=== PATIENT | male | born 1955 | race Caucasian/White ===

== ENCOUNTER 2022-09-02 06:47 | Day surgery (SDC) | payer MEDICAID, SELFPAY ==
--- NOTE | 2022-09-02 06:35 | ANES.PREOP_ITS ---
General Info Date of Service Date Performed: 09/02/22 Height: 5 ft 6 in Weight: 83.915 kg Body Mass Index (BMI): 29.8 Surgical Procedure: Operation Date: 09/02/22 08:40 Proposed Procedure Side Surgeon p Cataract Extraction with IOL Implant Right Sukhjinder Obrien MD Meds Allergies and Home Medications Allergies Allergy/AdvReac Type Severity Reaction Status Date / Time Sulfa (Sulfonamide Allergy Unknown Unknown Unverified 09/02/22 07:29 Antibiotics) Home Medication Medication Instructions Recorded albuterol sulfate 90 mcg/actuation 2 puff inhalation Q4H 08/29/22 aerosol inhaler amlodipine 5 mg tablet 5 mg PO DAILY 08/29/22 aspirin 81 mg capsule,delayed 81 mg PO DAILY 08/29/22 release atorvastatin 10 mg tablet 10 mg PO DAILY 08/29/22 budesonide-formoterol HFA 160 1 puff inhalation BID 08/29/22 mcg-4.5 mcg/actuation aerosol inhaler (Symbicort) cyanocobalamin (vitamin B-12) 1,000 mcg PO DAILY 08/29/22 1,000 mcg tablet folic acid 1 mg tablet 1 mg PO DAILY 08/29/22 hydrocortisone 1 % topical cream 1 applic topical BID 08/29/22 metoprolol succinate 25 mg 25 mg PO DAILY 08/29/22 tablet,extended release 24 hr multivitamin with minerals 1 tab PO DIRECTED 08/29/22 thiamine HCl (vitamin B1) 100 mg 100 mg PO DAILY 08/29/22 tablet Current Visit Medications: Current Medications Generic Name Dose Route Start Last Admin Trade Name Freq PRN Reason Stop Dose Admin Acetaminophen 1,000 mg 09/02/22 06:00 Acetaminophen 500 Mg Tab PO Q4H PRN PRN Miscellaneous Medication 0 ml 09/02/22 06:00 Tropicam./Phenyleph. (1/2.5%) 5 Ml Btl OD DIRECTED [facility] Miscellaneous Medication 0 ml 09/02/22 06:00 Prednisolone 1%, Moxifloxacin 0.5%, Nepafenac 0.1% 5ml Btl OD DIRECTED [facility] Tetracaine HCl 0 ml 09/02/22 06:00 Tetracaine 0.5% 4 Ml Btl OD DIRECTED [facility] PFSH Active Problems Active Problems: Problem Status Onset Code Cortical cataract of right eye H26.9 Nuclear sclerotic cataract of right eye H25.11 Medical History Medical History Acute non-ST elevation myocardial infarction (NSTEMI) 01/2021-F/U with PCP Alcohol dependence Anemia ASCVD (arteriosclerotic cardiovascular disease) Cellulitis of right leg COPD (chronic obstructive pulmonary disease) Edema of lower extremity HLD (hyperlipidemia) Hypertensive disorder Nicotine dependence Overweight PAD (peripheral artery disease) Steatosis of liver Surgical History Surgical History (Updated 09/02/22 @ 07:26 by Vivian Reyna) History of ankle surgery History of hernia repair Hx of cardiac catheterization 1 stent Tobacco Smoking/Tobacco Use Status: Current every day Tobacco Type: cigarettes Alcohol Alcohol Intake: current Alcohol intake frequency: 3 or more drinks per day Alcohol type: beer Substance Use Substance use: Never Substance use type: does not use Details: 6 pack a day Vital Signs and Lab Results Lab Results Blood Type / Crossmatch: No Data to Display Complete Blood Count: No Data to Display Complete Metabolic Panel: No Data to Display Liver Function Panel: No Data to Display Coagulation Panel: No Data to Display Cardiac Panel: No Data to Display Arterial Blood Gas: No Data to Display Venous Blood Gas: No Data to Display Pancreas Panel: No Data to Display Thyroid Panel: No Data to Display Infectious Disease: No Data to Display Blood Cultures: No Data to Display Toxicology Panel: No Data to Display Anesthesia Assessment and Plan Anesthesia History Personal History: No History of Anesthesia Complications Family History: No Family History of Anesthesia Complications Exercise Tolerance Exercise Tolerance: Metabolic Equivalents>4 Pertinent Negatives Pertinent Negatives: No Symptoms of GERD Cardiac & Pulmonary Exam Cardiac Exam: Normal S1/S2 Heart Sounds Pulmonary Exam: Wheezing Present and Active Cough or Cold (States is his smokers cough) Cardiac and Pulmonary Comment:: Abdominal distension, denies liver issues or ascites. Patient is concerned about lying flat. Implantable Cardiac Device Does patient have a Pacemaker or an ICD?: No Airway Exam Known Difficult Airway: No Mallampati Class: 2 Mouth Opening: Normal (> 3cm) Thyromental Distance: Greater than 3 cm Neck Range of Motion: Full ROM Neck Circumference: Normal Teeth Condition: Edentulous ASA Classification ASA Score: ASA 3 Emergency Case?: No NPO Status NPO Status: NPO Clears >2 hours, Solids >8 hours Anesthesia Plan Resuscitation Status: Full Code Anesthesia Technique: MAC Anesthesia Airway Planned: Natural Airway Monitors Used: Standard Monitors
[2022-09-02 07:34] VITALS: BP 137/65; PULSE 97; RESP 18; TEMP 37.1; O2SAT 95
[2022-09-02] MEDS: Tropicam./Phenyleph. (1/2.5%) 5 ML BTL OD ×3 (07:34→07:47)
[2022-09-02 08:17] VITALS: BMI 29.8
[2022-09-02] MEDS: Tetracaine 0.5% 4 ML BTL OD (08:33)
[2022-09-02] MEDS: Balanced Salt Soln.-PLUS 500 ML BAG (08:33)
[2022-09-02] MEDS: Duovisc Viscoelastic System EACH 1 EACH (08:34)
[2022-09-02] MEDS: Lidocaine 1% Pres-Free 5 ML VIAL (08:35)
[2022-09-02] MEDS: Lidocaine 2% Jelly 6 ML SYR (08:35)
[2022-09-02] MEDS: Povidone-Iodine Ophth 30 ML BTL (08:37)
--- NOTE | 2022-09-02 08:43 | W.PM.DSUDISC ---
Date of service: 09/02/22 Time of Service: 08:43 Discharge Plan Disposition Patient Disposition: Home Discharge Details Attending Provider: Sukhjinder Obrien Primary Care Provider: KATRINA RAMIREZ Home Meds and New Rx's Prescriptions: No Action atorvastatin 10 mg Tablet 10 mg PO DAILY cyanocobalamin (vitamin B-12) 1,000 mcg Tablet 1,000 mcg PO DAILY thiamine HCl (vitamin B1) 100 mg Tablet 100 mg PO DAILY amlodipine 5 mg Tablet 5 mg PO DAILY aspirin 81 mg Capsule,Delayed Release(Dr/Ec) 81 mg PO DAILY hydrocortisone 1 % Cream 1 applic topical BID folic acid 1 mg Tablet 1 mg PO DAILY metoprolol succinate 25 mg Tablet Extended Release 24 Hr 25 mg PO DAILY multivitamin with minerals Tablet 1 tab PO DIRECTED albuterol sulfate 90 mcg/actuation Hfa Aerosol Inhaler 2 puff INHALATION Q4H budesonide-formoterol [Symbicort] 160-4.5 mcg/actuation Hfa Aerosol Inhaler 1 puff INHALATION BID Discharge Instructions Stand Alone Forms: Post-op Topical Cataract, Julian Krause ([facility]U) Discharge Orders Discharge Orders: Discharge Order (Routine); Ordered 09/02/22 Ordered By: Sukhjinder Obrien DS: Diagnosis Discharge Diagnosis (1) Nuclear sclerotic cataract of right eye: Status: Resolved (2) Cortical cataract of right eye: Status: Resolved
--- NOTE | 2022-09-02 08:44 | ROE_ITS ---
Date of service: 09/02/22 Time of Service: 08:44 Operative Note Operative Note DATE OF PROCEDURE: 09/02/22 PRE-OP DIAGNOSIS: Nuclear/cortical cataract, right eye POST-OP DIAGNOSIS: same PROCEDURE: Cataract extraction using phacoemulsification with intraocular lens implant, right eye SURGEON: Sukhjinder Obrien ANESTHESIA TYPE: Local By Surgeon and MAC Refer to Anesthesia Record ESTIMATED BLOOD LOSS: 0 PATHOLOGY: none sent COMPLICATIONS: None Patient was transported to: same day Patient's condition: stable Implants: Jake & Jake Tecnis Eyhance [id number] Indications: Progressive visual loss due to cataract, right eye Procedure Description: CATARACT SURGERY OPERATIVE REPORT PREOPERATIVE DIAGNOSIS: 1. Nuclear/cortical cataract, right eye POSTOPERATIVE DIAGNOSIS: Same OPERATION: 1. Cataract extraction using phacoemulsification with posterior chamber intraocular lens implant, right eye. IOL: IOL Speech Therapy Assistant/Model: Jake & Jake Tecnis Eyhance DIB00 IOL Power: + 23.5 diopters IOL Serial Number: [id number] Optic Diameter: 6.0mm Haptic/Overall Diameter: 13.0mm PHACO INFO: Jian EventSneakerurion Vision System with OZil and Active Fluidics Cumulative Dispersed Energy (CDE): 9.26 seconds SURGEON: Sukhjinder Obrien MD, SHAUN ANESTHESIA: Monitored Anesthesia Care (MAC), with local sub-tenon's anesthetic infiltration COMPLICATIONS: None SPECIMENS: None INDICATIONS FOR PROCEDURE: The patient is a 66-year-old male with history of diminished visual acuity in his right eye secondary to the development of nuclear/cortical cataract. He is significantly symptomatic that he desires cataract surgery and attempt to improve and maximize his vision. The option of cataract surgery was offered to the patient and he wished to proceed. PROCEDURE: The correct surgical eye was identified and marked as the right eye and the pupil was dilated in the preoperative area using mydriatics and cycloplegics. The dilated pupil size was 7.0 mm. The patient elected to proceed without oral sedation. The patient was brought to the operating room where cardiopulmonary monitoring was instituted and surgical time-out was performed, confirming the correct operative eye and IOL power. Topical anesthesia was administered and ophthalmic povidone-iodine 5% was instilled into the conjunctival fornices. Lidocaine gel was applied to the cornea and the fide-ocular area was prepped with Betadine 10% solution and draped in the usual sterile fashion for intraocular surgery, including an aperture drape. A Tegaderm transparent film dressing was cut in half and used to cover the lashes and lid margins. Care was taken to sequester the lashes and lid margins under the Tegaderm dressing. A lid speculum was placed between the lids of the operative eye and the Jian LuxOR Revalia operating microscope was maneuvered into position. Diego scissors were then used to make a conjunctival buttonhole approximately 6mm posterior to the limbus in the inferonasal quadrant. Blunt dissection was carried out to expose bare sclera, and a blunt-tipped sub-tenon?s anesthesia cannula was introduced and passed posteriorly along the globe where non- preserved plain lidocaine was injected into posterior sub-Tenon?s space. A sideport knife was used to make a paracentesis port inferotemporally. Intraocular phenylephrine/lidocaine was injected into the anterior chamber. The anterior chamber was filled with viscoelastic. A keratome knife was used to construct a 2-plane near-clear corneal tunnel extending 2.0mm into clear cornea superiortemporally. A flap was raised on the anterior capsule and capsulorhexis forceps were used to complete a continuous curvilinear capsulorhexis of 5.0 mm. Balanced salt solution was then used to perform cortical cleaving hydrodissection and nuclear hydrodelineation until the lens could be freely rotated within the capsular bag. The lens nucleus was then disassembled and removed within the capsular bag and iris plane using phacoemulsification. Residual cortical material was removed using the I/A handpiece. The posterior capsule was carefully polished to remove as much residual lens epithelial cells as safely possible. The capsular bag was then inflated and the anterior chamber deepened with viscoelastic. The lens implant described above was inserted into the capsular bag using the Jake [employer] David Simplicity pre-loaded injector. A Kuglen hook was used to dial the IOL into position. Residual viscoelastic was then removed first from posterior to the IOL, then from the anterior chamber using the I/A handpiece. The lens implant was noted to center nicely within the capsular bag. The incisions were stromally hydrated, and the anterior chamber was reformed using BSS. Then 0.5cc of moxifloxacin 1.0mg/ml were injected into the capsular bag and anterior chamber. The incis ions were checked with a Weck spear and found to be secure. Several drops of ophthalmic povidone-iodine 5% were then applied to the eye followed by two drops of Imprimis combination prednisolone/moxifloxacin/nepafenac solution. The drapes were removed and a clear plastic protective eye shield was placed over the eye. The patient was then returned to Same Day Surgery in stable condition.
[2022-09-02 08:46] VITALS: BP 142/71; PULSE 94; RESP 20; TEMP 37.2; O2SAT 96
--- NOTE | 2022-09-02 09:05 | W.ANESPOSTOP ---
Postoperative Evaluation Date, Time and Location Date Performed: 09/02/22 Time Performed: 08:48 Patient Location: Day Surgery Unit Vital Signs Most Recent Imported Vital Signs: Most Recent Vital Signs Temp Pulse Resp BP Pulse Ox 37.2 C 94 H 20 142/71 H 96 09/02/22 08:46 09/02/22 08:46 09/02/22 08:46 09/02/22 08:46 09/02/22 08:46 Pain Score Most Recent Pain Score: Most Recent Pain Score Pain Level 0 09/02/22 08:46 Assessment Mental Status: Awake (Alert & Oriented to Patient Baseline) Airway and Respiratory Function: Patent airway with normal (patient baseline) respiratory exam Cardiovascular Function: Hemodynamically Stable Hydration Status: Adequately Hydrated Nausea & Vomiting: No Nausea or Vomiting Pain: Pt. Denies Any Pain Peripheral Nerve Block: Other (Local by Dr. Obiren)
== END 2022-09-02 09:10 | disposition home or self-care (01) ==
LOC: SUR 06:48
PROVIDERS: PCP Family Medicine; Visit Provider Ophthalmology
PROC: (CPT 66984; principal; 2022-09-02 08:30)
DX: H25.11 Age-related nuclear cataract, right eye (principal)
CPT/HCPCS: 66984; V2632

== ENCOUNTER 2022-09-16 05:57 | Day surgery (SDC) | payer MEDICAID, SELFPAY ==
--- NOTE | 2022-09-16 06:24 | W.ANESPRE ---
General Info Date of Service Date Performed: 09/16/22 Height: 5 ft 6 in Weight: 38.056 kg Body Mass Index (BMI): 13.5 Surgical Procedure: Operation Date: 09/16/22 07:40 Proposed Procedure Side Surgeon p Cataract Extraction with IOL Implant Left Sukhjinder Obrien MD Meds Allergies and Home Medications Allergies Allergy/AdvReac Type Severity Reaction Status Date / Time Sulfa (Sulfonamide Allergy Unknown Unknown Unverified 09/16/22 06:40 Antibiotics) Home Medication Medication Instructions Recorded albuterol sulfate 90 mcg/actuation 2 puff inhalation Q4H 08/29/22 aerosol inhaler amlodipine 5 mg tablet 5 mg PO DAILY 08/29/22 aspirin 81 mg capsule,delayed 81 mg PO DAILY 08/29/22 release atorvastatin 10 mg tablet 10 mg PO DAILY 08/29/22 budesonide-formoterol HFA 160 1 puff inhalation BID 08/29/22 mcg-4.5 mcg/actuation aerosol inhaler (Symbicort) cyanocobalamin (vitamin B-12) 1,000 mcg PO DAILY 08/29/22 1,000 mcg tablet folic acid 1 mg tablet 1 mg PO DAILY 08/29/22 hydrocortisone 1 % topical cream 1 applic topical BID 08/29/22 metoprolol succinate 25 mg 25 mg PO DAILY 08/29/22 tablet,extended release 24 hr multivitamin with minerals 1 tab PO DIRECTED 08/29/22 thiamine HCl (vitamin B1) 100 mg 100 mg PO DAILY 08/29/22 tablet Current Visit Medications: Current Medications Generic Name Dose Route Start Last Admin Trade Name Freq PRN Reason Stop Dose Admin Acetaminophen 1,000 mg 09/16/22 06:00 Acetaminophen 500 Mg Tab PO Q4H PRN PRN Miscellaneous Medication 0 ml 09/16/22 06:00 Tropicam./Phenyleph. (1/2.5%) 5 Ml Btl OS DIRECTED [facility] Miscellaneous Medication 0 ml 09/16/22 06:00 Prednisolone 1%, Moxifloxacin 0.5%, Nepafenac 0.1% 5ml Btl OS DIRECTED [facility] Tetracaine HCl 0 ml 09/16/22 06:00 Tetracaine 0.5% 4 Ml Btl OS DIRECTED [facility] [place] PFSH Active Problems Active Problems: Problem Status Onset Code Cortical cataract of left eye H26.9 Nuclear age-related cataract, left eye H25.12 Nuclear sclerotic cataract of right eye H25.11 Cortical cataract of right eye H26.9 Medical History Medical History Acute non-ST elevation myocardial infarction (NSTEMI) 01/2021-F/U with PCP Alcohol dependence Anemia ASCVD (arteriosclerotic cardiovascular disease) Cellulitis of right leg COPD (chronic obstructive pulmonary disease) Edema of lower extremity HLD (hyperlipidemia) Hypertensive disorder Nicotine dependence Overweight PAD (peripheral artery disease) Steatosis of liver Surgical History Surgical History History of ankle surgery History of hernia repair Hx of cardiac catheterization 1 stent Tobacco Smoking/Tobacco Use Status: Current every day Tobacco Type: cigarettes Alcohol Alcohol Intake: current Alcohol intake frequency: 3 or more drinks per day Alcohol type: beer Substance Use Substance use: Never Substance use type: does not use Details: 6 pack a day Vital Signs and Lab Results Vital Signs Most Recent Vital Signs in EMR: Temp Pulse Resp BP Pulse Ox 36.9 C 111 H 28 H 139/71 96 09/16/22 06:55 09/16/22 06:55 09/16/22 06:55 09/16/22 06:55 09/16/22 06:55 Lab Results Blood Type / Crossmatch: No Data to Display Complete Blood Count: No Data to Display Complete Metabolic Panel: No Data to Display Liver Function Panel: No Data to Display Coagulation Panel: No Data to Display Cardiac Panel: No Data to Display Arterial Blood Gas: No Data to Display Venous Blood Gas: No Data to Display Pancreas Panel: No Data to Display Thyroid Panel: No Data to Display Infectious Disease: No Data to Display Blood Cultures: No Data to Display Toxicology Panel: No Data to Display Anesthesia Assessment and Plan Anesthesia History Personal History: No History of Anesthesia Complications Family History: No Family History of Anesthesia Complications Exercise Tolerance Exercise Tolerance: Metabolic Equivalents>4 Cardiac & Pulmonary Exam Cardiac Exam: Normal S1/S2 Heart Sounds Pulmonary Exam: Other Cardiac and Pulmonary Comment:: Abdominal distension, denies liver issues or ascites. Patient is concerned about lying flat. Implantable Cardiac Device Does patient have a Pacemaker or an ICD?: No Airway Exam Known Difficult Airway: No Mallampati Class: 2 Mouth Opening: Normal (> 3cm) Thyromental Distance: Greater than 3 cm Neck Range of Motion: Full ROM Neck Circumference: Normal Teeth Condition: Edentulous ASA Classification ASA Score: ASA 3 Emergency Case?: No NPO Status NPO Status: NPO Clears >2 hours, Solids >8 hours Anesthesia Plan Resuscitation Status: Full Code Anesthesia Technique: MAC Anesthesia Airway Planned: Natural Airway Monitors Used: Standard Monitors Preoperative Comments:: repeat cataract, denies major changes in health history. As noted previously, he is concerned about his ability to lay flat. no MKO previously.
[2022-09-16] MEDS: Tropicam./Phenyleph. (1/2.5%) 5 ML BTL OS ×3 (06:49→07:07)
[2022-09-16 06:55] VITALS: BP 139/71; PULSE 111; RESP 28; TEMP 36.9; O2SAT 96
[2022-09-16 07:09] VITALS: BMI 13.5
[2022-09-16] MEDS: Phenylephrine/Lidocaine (15/10) MG/ML 1 ML VIAL (07:34)
[2022-09-16] MEDS: Lidocaine 1% Pres-Free 5 ML VIAL (07:34)
[2022-09-16] MEDS: Balanced Salt Soln.-PLUS 500 ML BAG (07:35)
[2022-09-16] MEDS: Povidone-Iodine Ophth 30 ML BTL (07:35)
[2022-09-16] MEDS: Lidocaine 2% Jelly 6 ML SYR (07:36)
[2022-09-16] MEDS: Duovisc Viscoelastic System EACH 1 EACH (07:36)
[2022-09-16] MEDS: Tetracaine 0.5% 4 ML BTL OS (07:37)
[2022-09-16 07:54] VITALS: BP 120/69; PULSE 99; RESP 24; TEMP 36.5; O2SAT 98
--- NOTE | 2022-09-16 07:55 | W.PM.DSUDISC ---
Date of service: 09/16/22 Time of Service: 07:55 Discharge Plan Disposition Patient Disposition: Home Discharge Details Attending Provider: Sukhjinder Obrien Primary Care Provider: KATRINA RAMIREZ Home Meds and New Rx's Prescriptions: No Action atorvastatin 10 mg Tablet 10 mg PO DAILY cyanocobalamin (vitamin B-12) 1,000 mcg Tablet 1,000 mcg PO DAILY thiamine HCl (vitamin B1) 100 mg Tablet 100 mg PO DAILY amlodipine 5 mg Tablet 5 mg PO DAILY aspirin 81 mg Capsule,Delayed Release(Dr/Ec) 81 mg PO DAILY hydrocortisone 1 % Cream 1 applic topical BID folic acid 1 mg Tablet 1 mg PO DAILY metoprolol succinate 25 mg Tablet Extended Release 24 Hr 25 mg PO DAILY multivitamin with minerals Tablet 1 tab PO DIRECTED albuterol sulfate 90 mcg/actuation Hfa Aerosol Inhaler 2 puff INHALATION Q4H budesonide-formoterol [Symbicort] 160-4.5 mcg/actuation Hfa Aerosol Inhaler 1 puff INHALATION BID Discharge Instructions Stand Alone Forms: Post-op Topical Cataract, Julian Krause ([facility]U) Discharge Orders Discharge Orders: Discharge Order (Routine); Ordered 09/16/22 Ordered By: Sukhjinder Obrien DS: Diagnosis Discharge Diagnosis (1) Cortical cataract of left eye: Status: Resolved (2) Nuclear age-related cataract, left eye: Status: Resolved
--- NOTE | 2022-09-16 07:56 | W.PM.OP ---
Date of service: 09/16/22 Time of Service: 07:56 Operative Note Operative Note DATE OF PROCEDURE: 09/16/22 PRE-OP DIAGNOSIS: Nuclear/cortical cataract, left eye POST-OP DIAGNOSIS: same PROCEDURE: Cataract extraction using phacoemulsification with intraocular lens implant, left eye SURGEON: Sukhjinder Obrien ANESTHESIA TYPE: Local By Surgeon and MAC Refer to Anesthesia Record PATHOLOGY: none sent COMPLICATIONS: None Patient was transported to: same day Patient's condition: stable Implants: Jake and Jake Tecnis Eyhance DIB00 Indications: Progressive decreased vision due to cataract, left eye Procedure Description: CATARACT SURGERY OPERATIVE REPORT PREOPERATIVE DIAGNOSIS: 1. Nuclear/cortical cataract, left eye POSTOPERATIVE DIAGNOSIS: Same OPERATION: 1. Cataract extraction using phacoemulsification with posterior chamber intraocular lens implant, left eye. IOL: IOL Cafeteria Food Server/Model: Jake & Jake Tecnis Eyhance DIB00 IOL Power: + 22.0 diopters IOL Serial Number: [id number] Optic Diameter: 6.0 mm Haptic/Overall Diameter: 13.0 mm PHACO INFO: JianBrightQube Vision System with OZil and Active Fluidics Cumulative Dispersed Energy (CDE): 8.37 seconds SURGEON: Sukhjinder Obrien MD, SHAUN ANESTHESIA: Monitored A [facility] (MAC), with local sub-tenon's anesthetic infiltration COMPLICATIONS: None SPECIMENS: None INDICATIONS FOR PROCEDURE: The patient is a 66-year-old male with history of diminished visual acuity in both eyes secondary to the development of bilateral nuclear/cortical cataract. He has already undergone cataract surgery in the right eye and is doing well postoperatively. He now presents for cataract surgery in the right eye. PROCEDURE: The correct surgical eye was identified and marked as the left eye and the pupil was dilated in the preoperative area using mydriatics and cycloplegics. The dilated pupil size was 6.0 mm. The patient elected to proceed without oral sedation. The patient was brought to the operating room where cardiopulmonary monitoring was instituted and surgical time-out was performed, confirming the correct operative eye and IOL power. Topical anesthesia was administered and ophthalmic povidone-iodine 5% was instilled into the conjunctival fornices. Lidocaine gel was applied to the cornea and the fide-ocular area was prepped with Betadine 10% solution and draped in the usual sterile fashion for intraocular surgery, including an aperture drape. A Tegaderm transparent film dressing was cut in half and used to cover the lashes and lid margins. Care was taken to sequester the lashes and lid margins under the Tegaderm dressing. A lid speculum was placed between the lids of the operative eye and the Jian LuxOR Revalia operating microscope was maneuvered into position. Diego scissors were then used to make a conjunctival buttonhole approximately 6mm posterior to the limbus in the inferonasal quadrant. Blunt dissection was carried out to expose bare sclera, and a blunt-tipped sub-tenon?s anesthesia cannula was introduced and passed posteriorly along the globe where non-preserved plain lidocaine was injected into posterior sub-Tenon?s space. A sideport knife was used to make a paracentesis port superiorly/superiortemporally. Intraocular phenylephrine/lidocaine was injected int the anterior chamber.. The anterior chamber was filled with viscoelastic. A keratome knife was used to construct a 2-plane near-clear corneal tunnel extending 2.0mm into clear cornea temporally. A flap was raised on the anterior capsule and capsulorhexis forceps were used to complete a continuous curvilinear capsulorhexis of 5.0 mm. Capsulorhexis was challenging due to constant patient movement and constant rapid eye movement. Balanced salt solution was then used to perform cortical cleaving hydrodissection and nuclear hydrodelineation until the lens could be freely rotated within the capsular bag. The lens nucleus was then disassembled and removed within the capsular bag and iris plane using phacoemulsification. Residual cortical material was removed using the 45-degree angled silicone I/A tip with 0.3mm port. The posterior capsule was carefully polished to remove as much residual lens epithelial cells as safely possible. The capsular bag was then inflated and the anterior chamber deepened with viscoelastic. The lens implant described above was inserted into the capsular bag using the Jake and Jake Simplicity pre-loaded injector. . A Kuglen hook was used to dial the IOL into position. Residual viscoelastic was then removed first from posterior to the IOL, then from the anterior chamber using the I/A handpiece. The lens implant was noted to center nicely within the capsular bag. The incisions were stromally hydrated, and the anterior chamber was reformed using BSS. Then 0.5cc of moxifloxacin 1.0mg/ml were injected into the capsular bag and anterior chamber. The incisions were checked with a Weck spear and found to be secure. Several drops of ophthalmic povidone-iodine 5% were then applied to the eye followed by two drops of Imprimis combination prednisolone/moxifloxacin/nepafenac solution. The drapes were removed and a clear plastic protective eye shield was placed over the eye. The patient was then returned to Same Day Surgery in stable condition.
--- NOTE | 2022-09-16 08:01 | ANES.POST_ITS ---
Postoperative Evaluation Date, Time and Location Date Performed: 09/16/22 Time Performed: 08:02 Patient Location: Day Surgery Unit Vital Signs Most Recent Imported Vital Signs: Most Recent Vital Signs Temp Pulse Resp BP Pulse Ox 36.5 C 99 H 24 120/69 98 09/16/22 07:54 09/16/22 07:54 09/16/22 07:54 09/16/22 07:54 09/16/22 07:54 Pain Score Most Recent Pain Score: Most Recent Pain Score Pain Level 0 09/16/22 07:54 Assessment Mental Status: Awake (Alert & Oriented to Patient Baseline) Airway and Respiratory Function: Patent airway with normal (patient baseline) respiratory exam (states his breathing is normal for him. discussed he should follow up with his PCP about his health, and that he is not a candidate for elective surgery at [facility]. ) Cardiovascular Function: Hemodynamically Stable Hydration Status: Adequately Hydrated Nausea & Vomiting: No Nausea or Vomiting Pain: Pt. Denies Any Pain Peripheral Nerve Block: Patient did not receive a nerve block
== END 2022-09-16 08:18 | disposition home or self-care (01) ==
LOC: SUR 05:58
PROVIDERS: PCP Family Medicine; Visit Provider Ophthalmology
PROC: (CPT 66984; principal; 2022-09-16 07:30)
DX: H25.12 Age-related nuclear cataract, left eye
CPT/HCPCS: 66984; V2632